=== PATIENT | male | born 1995 | race Caucasian/White ===

== ENCOUNTER 2018-02-08 18:40 | Emergency (ER) | payer OTHER ==
[2018-02-08] MEDS: LIDOCAINE 2%/EPI MPF (SDV) 20 ML VIAL INJ (19:58)
== END 2018-02-08 20:01 | disposition home or self-care (01) ==
LOC: FTE 20:01
DX: N49.2 Inflammatory disorders of scrotum (principal)
CPT/HCPCS: 10060; 99284-25

== ENCOUNTER 2018-06-06 01:08 | Emergency (ER) | payer OTHER | END 2018-06-06 03:08 | disposition home or self-care (01) | LOC: FTE 01:08 | DX: S00.81XA Abrasion of other part of head, initial encounter (principal); F17.210 Nicotine dependence, cigarettes, uncomplicated; V49.49XA Driver injured in collision with other motor vehicles in traffic accident, initial encounter | CPT/HCPCS: 99283; Z7502 ==